=== PATIENT | male | born 1940 | race Hispanic/Latino ===

== ENCOUNTER → 2017-07-26 | Outpatient (CLI) | payer OTHER ==
[~2017-07-26] MED LIST: GADOBENATE DIMEGLUMINE 20 ML IV ONE
== END | disposition home or self-care (01) ==
LOC: RAH 14:09
PROVIDERS: ATTEND Family Medicine
DX: R26.9 Unspecified abnormalities of gait and mobility (principal)
CPT/HCPCS: 70553; A9577

== ENCOUNTER 2018-10-14 05:30 | Day surgery (SDC) | payer OTHER ==
[~2018-10-14] VITALS: Ht 172.7 cm; Wt 72.6 kg
[~2018-10-14 05:30] MED LIST changes: +CYAN1TAB44 PO; -GADOBENATE DIMEGLUMINE 20 ML IV ONE; +METF500T7 PO
[2018-10-14] MEDS ORDERED: SODIUM CHLORIDE 0.9% 1000ML 1,000 ML IV ONE (06:00)
[2018-10-14 06:48] VITALS: BP 133/71
[2018-10-14 09:27] VITALS: BP 126/65
[2018-10-14 09:32] VITALS: BP 129/76
[2018-10-14 09:37] VITALS: BP 134/70
[2018-10-14 09:45] VITALS: BP 135/73
== END 2018-10-14 09:55 | disposition home or self-care (01) ==
LOC: DAH 05:30 → ENDO 05:30
PROVIDERS: ATTEND Internal Medicine
DX: K29.50 Unspecified chronic gastritis without bleeding (principal); K74.60 Unspecified cirrhosis of liver; K31.89 Other diseases of stomach and duodenum; E11.9 Type 2 diabetes mellitus without complications; F10.21 Alcohol dependence, in remission; E66.9 Obesity, unspecified; Z68.24 Body mass index [BMI] 24.0-24.9, adult; Z79.84 Long term (current) use of oral hypoglycemic drugs; Z79.899 Other long term (current) drug therapy; Z87.891 Personal history of nicotine dependence
CPT/HCPCS: 43239; 82948 ×2; 88305; 93005; A4606; J7030

== ENCOUNTER → 2018-12-02 | Outpatient (CLI) | payer OTHER ==
[~2018-12-02] MED LIST changes: +METF500T20 PO; -METF500T7 PO
--- NOTE | 2018-12-02 10:30 | NUR ---
MBSS COMPLETED. DEEP PENETRATION WITH THIN LIQUIDS AND PUDDING TEXTURE. RECOMMEND REGULAR TEXTURE, NECTAR-THICK LIQUIDS; PILLS WHOLE WITH LIQUIDS. RECOMMENDATIONS: 1. SKILLED SPEECH THERAPY TARGETING SWALLOWING 2-3X WEEK 2. PLEASE CONSIDER PHYSICAL THERAPY EVALUATION SECONDARY TO POOR GAIT. 3. NEUROLOGY CONSULT RECOMMENDED SECONDARY TO UNKNOWN CAUSE OF DYSPHAGIA Addendum: 12/03/18 at 0919 by ARACELIS MARTIN, [facility] Amended: Links added.
== END | disposition home or self-care (01) ==
LOC: RAH 10:18
PROVIDERS: ATTEND Family Medicine
DX: K21.9 Gastro-esophageal reflux disease without esophagitis (principal); R13.13 Dysphagia, pharyngeal phase; E11.9 Type 2 diabetes mellitus without complications
CPT/HCPCS: 74230; 92611